=== PATIENT | female | born 1970 | race Caucasian/White ===

== ENCOUNTER 2024-05-29 20:21 | Emergency (ER) | payer BC, SELFPAY ==
[2024-05-29 20:23] VITALS: BP 125/75
--- NOTE | 2024-05-29 21:50 | EDRN ---
Informed by registration that pt was leaving because she wanted to see a doctor and be given result of xray. Immediately called charge nurse to inform and pt was already walking down the hallway toward exit. Pt was not examined by this RN nor seen
by an ED provider.
== END 2024-05-29 21:50 | disposition left against medical advice (07) ==
LOC: EMR 20:21
DX: R07.89 Other chest pain (principal); Z53.21 Procedure and treatment not carried out due to patient leaving prior to being seen by health care provider
CPT/HCPCS: 71101

== ENCOUNTER 2024-05-30 13:03 | Emergency (ER) | payer BC, SELFPAY ==
[2024-05-30 13:03] VITALS: BMI 22.3
[2024-05-30 13:06] VITALS: BP 141/89
--- NOTE | 2024-05-30 13:57 | ED.GENMED ---
History of Present Illness
<SOFYA Love - Last Filed: 05/30/24 14:27>
General
Chief Complaint: Musculo-Skeletal Complaint
Source: patient
Exam Limitations: none
Time Seen by Provider: 05/30/24 13:42
Nursing documentation reviewed up to this point in time: agreed with
History of Present Illness
History of Present Illness:
Patient is a 54-year-old female who presents to the ER for evaluation. Patient reports she was seen here yesterday but left and had an x-ray but did not see a physician. She reports she fell last at 4 PM coming out of the shower slipping on hair
dye and hit her right rib into the toilet. She denies hitting her head. Her only complaint is pain to the right posterior lateral rib worse with movement or taking a deep breath. She has been taking ibuprofen without relief. She denies any
abdominal pain nausea vomiting. She has not short of breath.
Past History
<SOFYA Love - Last Filed: 05/30/24 14:27>
Past History
ED Past Medical History: Psychiatric and Other (Alcohol abuse)
ED Past Surgical History: Tonsilectomy
Social History
Tobacco: Non-smoker
Alcohol: Chronic alcoholic
Drug: None
Personal:
Living: with family
Employment: Not employed
Family History
Family History: Unable to obtain
Review of Systems
<SOFYA Love - Last Filed: 05/30/24 14:27>
Review of Systems
Allergies reviewed?: Yes
All Other Systems: ROS reviewed and negative except as documented in HPI and ROS
Constitutional: Reports no symptoms
Respiratory: Reports other (right lateral/posterior rib pain worse with deep breath ); Denies cough or trouble breathing
Cardiac: Reports no symptoms
ABD/GI: Reports no symptoms; Denies abdominal pain, nausea or vomiting
Musculoskeletal: Reports no symptoms
Skin: Reports no symptoms
Neurological: Denies dizzy or headache
Psychiatric: Reports no symptoms
Phy Exam
<SOFYA Love - Last Filed: 05/30/24 14:27>
General Physical Exam
General Presentation: no apparent distress
General age: appears stated age
General Skin: warm and dry
General Habitus: normal
General Mental: alert
General Hydration: appears well hydrated
Cardiovascular Exam
Cardiovascular Exam: regular rate/rhythm, no murmur and normal peripheral pulses
Pulmonary Exam
Pulmonary Exam: lungs clear, no respiratory distress and other (Small amount of ecchymosis to right posterior lateral rib region no crepitus lungs are clear)
Gastrointestinal Exam
Gastrointestinal Exam: soft and other (No right upper quadrant or abdominal tenderness no ecchymosis or abrasions to abdomen)
Neurological Exam
Neurological Exam: alert and oriented x3
Musculoskeletal Exam
Musculoskeletal Exam: full ROM
Skin Exam
Skin Exam: normal color and warm/dry
Psychiatric Exam
Psychiatric Exam: normal mood/affect
Course
<SOFYA Love - Last Filed: 05/30/24 14:27>
Orders/Labs/Results
Orders:
Orders
05/30/24 14:10
Ketorolac [Toradol] 30 mg IM NOW STA
05/30/24 14:15
Incentive Spirometry [Rx Incentive Spirometry] [RESP] Urgent
Frequency: q1h while awake
Vital Signs
Initial and Last Documented VS:
Initial Vital Signs
Temp Pulse Resp BP Pulse Ox
98.2 F 98 20 141/89 98
05/30/24 13:06 05/30/24 13:06 05/30/24 13:06 05/30/24 13:06 05/30/24 13:06
Last Documented Vital Signs
Temp Pulse Resp BP Pulse Ox
98.2 F 98 20 141/89 98
05/30/24 13:06 05/30/24 13:06 05/30/24 14:00 05/30/24 13:06 05/30/24 13:06
Storeroom Attendant consulted with Physician
Storeroom Attendant consulted with physician?: Yes
Name of Physician Consulted: DR Silva
<Tay Silva DO - Last Filed: 05/30/24 14:13>
Orders/Labs/Results
Orders:
Orders
05/30/24 14:10
Ketorolac [Toradol] 30 mg IM NOW STA
05/30/24 14:15
Incentive Spirometry [Rx Incentive Spirometry] [RESP] Urgent
Frequency: q1h while awake
Vital Signs
Initial and Last Documented VS:
Initial Vital Signs
Temp Pulse Resp BP Pulse Ox
98.2 F 98 20 141/89 98
05/30/24 13:06 05/30/24 13:06 05/30/24 13:06 05/30/24 13:06 05/30/24 13:06
Last Documented Vital Signs
Temp Pulse Resp BP Pulse Ox
98.2 F 98 20 141/89 98
05/30/24 13:06 05/30/24 13:06 05/30/24 14:00 05/30/24 13:06 05/30/24 13:06
<SOFYA Love - Last Filed: 05/30/24 14:27>
MDM/Problems Addressed
Differential Diagnosis Includes:
Not limited to rib fracture
MDM/Problems Addressed:
Patient was evaluated here yesterday after having a fall and complaining of rib pain had x-rays but did not see a physician left prior to. She called today because of continued right lateral rib pain and was instructed to come back. X-rays
reviewed from yesterday show fractures through the right 7th through 9th ribs. She denies hitting her head denies any abdominal pain nausea vomiting. On exam there is no crepitus she has small ecchymosis and tenderness to right posterior lateral
ribs no abdominal/right upper quadrant tenderness no obvious injury on exam to abdomen. She is no acute distress and looks well not hypoxic. Patient has a history of alcohol abuse but reports that she only drinks at times on weekends. She does
complain of pain not relieved with ibuprofen. pt eval by ED physician. Prescription for narcotics was sent to patient's pharmacy. I did instruct her that she may use [id number] Tylenol Motrin and if no relief then narcotic prescription. I
did educate patient on the importance of not taking this with her Xanax she has to follow-up with her family doctor return if any worsening of symptoms.
<SOFYA Love - Last Filed: 05/30/24 14:27>
*Critical Care Note
Total Time (30-74mins, 75-104mins- exclusive of procedures): Not Applicable
ED Attending Note
<SOFYA Love - Last Filed: 05/30/24 14:27>
-
Portions of this chart may have been created with voice recognition software.� Occasional wrong word or��sound alike� substitutions may have occurred due to the inherent limitations of voice recognition software.
<Tay Silva DO - Last Filed: 05/30/24 14:13>
ED Attending Note
Patient seen and examined by attending physician: Yes
I performed the substantive portion of visit, reviewed & personally made and approve the management plan that is documented in note by myself or NICKOLAS.: Yes
I performed a history and physical exam of patient and discussed management with resident, I reviewed resident's note and agree with documented findings and plan of care.: Yes
ED Attending Note:
I eval'd at bedside. Will give narcotic rx. No abd tenderness. No resp distress.
Discharge Plan
Departure
Patient Disposition: Home (Routine Discharge)
Date of Disposition: 05/30/24
Time of Disposition: 14:10
Patient with high blood pressure during this ER visit?: Yes
Condition: Fair
Covid-19: Not Applicable
Discharge Problem:
Fracture, ribs
Instructions: Rib fractures in adults, BLOOD PRESSURE
Prescriptions:
New
oxycodone 5 mg capsule
5 mg PO Q6H PRN (Reason: Pain) Qty: 10 0RF
oxycodone 5 mg tablet
5 - 10 mg PO Q8H PRN (Reason: Pain) Qty: 14 0RF
No Action
fluoxetine 20 MG capsule
40 mg PO DAILY
bupropion HCl 300 MG tablet extended release 24 hr
300 mg PO DAILY
Referrals:
Donya Richardson PA [Family Provider] -
Activity Restrictions/Additional Instructions:
A prescription for pain medication was sent to your pharmacy. This is a narcotic medication take as directed. discussed you may take ibuprofen and alternate with Tylenol however if continued symptoms and pain then you may take the pain
medication as directed . No driving or drink alcohol taking this medication. This medicine may cause constipation be sure to take [id number] Colace or stool softener while taking this medication. Do not take alprazolam while taking this
medication.
Use incentive spirometer every hour for deep breathing exercises follow-up close with your family doctor in the next several days return if any worsening of symptoms.
Interventions
Interventions:
*Risk Screen - Suicide Last Done: 05/30/24 13:06
*General Assessment Last Done: 05/30/24 13:38
*Neglect/Abuse Screening Last Done: 05/30/24 13:06
ED- Fall Risk Assessment Last Done: 05/30/24 13:38
*ED COVID-19 Vaccine History Last Done: 05/30/24 13:06
ED-Musculoskeletal Assessment Last Done: 05/30/24 13:38
Discharge Date and Time
Print Language: SUDANESE
[2024-05-30] MEDS: TORADOL 30 MG IM (14:26)
== END 2024-05-30 14:50 | disposition home or self-care (01) ==
LOC: EMR 13:03
PROVIDERS: EMERGENCY PHYSICIAN Emergency Medicine; FAMILY PHYSICIAN Physician Assistant Medical
DX: S22.41XA Multiple fractures of ribs, right side, initial encounter for closed fracture (principal); W18.2XXA Fall in (into) shower or empty bathtub, initial encounter; Y93.E1 Activity, personal bathing and showering
CPT/HCPCS: 99282; 96372